=== PATIENT | male | born 1950 | race Caucasian/White ===

== ENCOUNTER 2024-03-05 10:13 | Emergency (ER) | payer MEDICARE ==
[~2024-03-05] VITALS: Ht 182.9 cm; Wt 82.6 kg
[2024-03-05] MEDS ORDERED: LIPITOR20 MG PO (10:54)
[2024-03-05] MEDS ORDERED: METOPROLOL SUCC25 MG PO (10:54)
[2024-03-05] MEDS: LORAZEPAM INJ 2 MG/ML VIAL IV ONE (12:00)
[2024-03-05 13:11] VITALS: BP 116/68; PULSE 71; RESP 18
[2024-03-05 13:41] VITALS: O2SAT 98
== END 2024-03-05 14:15 | disposition home or self-care (01) ==
LOC: FSED 10:24
DX: R06.01 Orthopnea (principal); I10 Essential (primary) hypertension; E78.5 Hyperlipidemia, unspecified; J98.11 Atelectasis; F41.9 Anxiety disorder, unspecified; F43.10 Post-traumatic stress disorder, unspecified; Z11.52 Encounter for screening for COVID-19
CPT/HCPCS: 0223U; 71260; 80048; 80076; 82553; 83880; 84484; 85025; 85379; 93005; 99284